=== PATIENT | male | born 1990 | race African-American/Black ===

== ENCOUNTER 2021-01-07 22:34 | Emergency (ER) | payer OTHER ==
[~2021-01-07] VITALS: Ht 165.1 cm; Wt 70.0 kg
[2021-01-07 23:08] LABS: BILIRUBIN,URINE NEGATIVE (NEG); CLARITY,URINE CLEAR; COLOR,URINE YELLOW; NITRITE,URINE NEGATIVE (NEG); PH,URINE 5.5 (<5.0-8.0); PROTEIN,URINE NEGATIVE (NEG-TRACE); UROBILINOGEN,URINE 0.2 mg/dL (0.2 mg/dL)
[2021-01-07 23:15] LABS: BACTERIA,URINE 0 /HPF (0-FEW); RBC,URINE 0 /HPF (0-2); WBC,URINE 20-40 /HPF (0-4)
--- NOTE | 2021-01-07 23:18 | PHYS DOC ---
General Adult EDM: Chief Complaint: TESTICULAR PAIN OR INJURY HPI: HPI: 30-year-old male past medical history of asthma, presents to the ED with complaints of left testicular pain with history of recent urethral discharge that has now resolved. Reports testicular pain radiates up into his abdomen. Reports unprotected intercourse with female partners. History of treatment of chlamydia in the past. No history of HIV or hepatitis. No associated genital lesions. Denies any or blunt trauma. Review of Systems: Review of Systems: Constitutional: Denies fever or chills. [] Eyes: Denies change in visual acuity. [] HENT: Denies nasal congestion or sore throat. [] Respiratory: Denies cough or shortness of breath. [] Cardiovascular: Denies chest pain or edema. [] GI: Denies nausea vomiting, bloody stools or diarrhea : Denies hematuria or flank pain or ulcers/lesions Musculoskeletal: Denies back pain or joint pain. [] Integument: Denies rash or diaphoresis Neurologic: Denies headache, focal weakness or sensory changes. [] Endocrine: Denies polyuria or polydipsia. [] Lymphatic: Denies swollen glands. [] Psychiatric: Denies depression or anxiety. [] Heart Score: C/O Chest Pain: No Risk Factors: Risk Factors: DM, Current or recent (<one month) smoker, HTN, HLP, family history of CAD, obesity. Risk Scores: Score 0 - 3: 2.5% MACE over next 6 weeks - Discharge Home Score 4 - 6: 20.3% MACE over next 6 weeks - Admit for Clinical Observation Score 7 - 10: 72.7% MACE over next 6 weeks - Early Invasive Strategies Allergies: Allergies: Allergies Coded Allergies Type Severity Reaction Last Updated Verified No Known Drug Allergies 01/07/21 No Physical Exam: PE: Constitutional: Well developed, well nourished, no acute distress, non-toxic appearance. HENT: Normocephalic, atraumatic, Eyes: EOMI, conjunctiva normal, no discharge. Neck: Normal range of motion, supple, Cardiovascular: S1/2 present, regular rhythm Lungs & Thorax: Speaking in full sentences, bilateral equal chest rise, no tachypnea or increased work of breathing Abdomen: soft, no tenderness, Skin: Warm, dry, no erythema, no rash. [] Extremities: No tenderness, no cyanosis, Neurologic: Alert and oriented X 3, normal motor function, normal sensory function, no focal deficits noted. [] Psychologic: Affect normal, judgement normal, mood normal. [] : chaperoned by male medic, circumcised, no urethral discharge expressed, very swollen left tender teste/scrotal sac, no perineal rash, no ulcers or lesions EKG: EKG: [] Radiology/Procedures: Radiology/Procedures: []IMAGING REPORT Signed PATIENT: RUTHY ROBLERO AACCOUNT: [id number] : 1990 LOCATION: ER AGE: 30 SEX: M EXAM STATUS: REG ER ORD. PHYSICIAN: ASHELY DE LA CRUZ DO REASON: left testibular pain PROCEDURE: TESTICULAR/SCROTUM CLINICAL HISTORY: Reason: left testibular pain / Spl. Instructions: / History: COMPARISON: None available. TECHNIQUE: Ultrasound images of the scrotum was performed with higgins-scale and color doppler. FINDINGS: The right testis measures 4.4 x 2.4 x 2.0 cm. The left testis measures 3.5 x 2.9 x 2.6 cm. There is no intratesticular abnormality. Testicular vascularity is symmetric and within normal limits. Left epididymis is enlarged with increased vascularity. Moderate-sized left hydrocele. IMPRESSION: Findings concerning for left-sided epididymoorchitis. Electronically signed by: Ivon Espinoza MD (01/07/2021 11:30 PM) MERGED WITH [facility] DICTATED and SIGNED BY: IVON ESPINOZA MD DATE: 01/07/21 [id number] 0 Course & Med Decision Making: Course & Med Decision Making Pertinent Labs and Imaging studies reviewed. (See chart for details) Concern for acute left epididymoorchitis in a young male with history of unprotected intercourse. Ceftin given in emergency department. Will prescribe doxycycline for 10 days. Patient is nontoxic-appearing, hemodynamically stable. Will discharge home with strict ED return precautions were given for difficulties urinating, genital rash, fever or confusion. Encouraged urgent outpatient follow-up with PMD and urology within 1 week. Life-threatening processes were considered but are low suspicion at this time, given history, physical exam and ED workup. Pt was educated on all prescription medications and adverse effects. All patient's questions were answered and pt was stable at time of discharge. Life/limb-threatening differential includes but is not limited to, sepsis/infection (epididymitis/orchitis, sti/pid, cystitis, pyelonephritis, Angela's gangrene or necrotizing fasciitis, abscess), ureterolithiasis, thro mbophlebitis, hemorrhage/DIC, organ prolapse, abdominal aortic aneurysm, mesenteric ischemia, neoplasm, bowel obstruction, testicular torsion or surgical abdomen I have spoken with the patient and/or caregivers. I explained the patient's condition, diagnoses and treatment plan based on the information available to me at this time. I have answered the patient and/or caregiver's questions and addressed any concerns. The patient and/or caregivers have a good understanding of patient's diagnosis, condition and treatment plan as can be expected at this point. Vital signs have been stable. Patient's condition is stable and appropriate for discharge from the emergency department. Patient will pursue further outpatient evaluation with primary care physician or other designated or consulting physician as outlined in the discharge instructions. The patient and/or caregivers are agreeable to this plan of care and follow-up instructions have been explained in detail. The patient and/or caregivers have received these instructions in written form and have expressed an understanding of the discharge instructions. The patient and/or caregivers are aware that any significant change of condition or worsening of symptoms should prompt immediate return to this or the closest emergency department or call to 911. Nazia Disclaimer: Nazia Disclaimer: This electronic medical record was generated, in whole or in part, using a voice recognition dictation system. Departure Departure Impression: Primary Impression: Acute epididymo-orchitis Disposition: HOME / SELF CARE / HOMELESS Condition: STABLE Referrals: JUSTINA CLEMENTS III DO Follow-up with your primary care physician in 24 to 48 hours OR FOLLOW UP WITH FAMILY MEDICINE: [address], [address] [place] [address] Patient Instructions: Epididymitis, Orchitis Additional Instructions: FOLLOW UP WITH UROLOGY: FOR DEFINITIVE MANAGEMENT in 1 week [facility] [place] [address] [place] [address] [place] [address] [address] [place] [address] [facility] [address] [address] [place] [address] EMERGENCY DEPARTMENT GENERAL DISCHARGE INSTRUCTIONS Thank you for coming to [facility] Emergency Department (ED) today and trusting us with you care. We trust that you had a positive experience in our Emergency Department. If you wish to speak to the department management, you may call the Director at [phone]. YOUR FOLLOW UP INSTRUCTIONS ARE FOLLOWS: 1. Do you have a private Doctor? If you do not have a private doctor, please ask for a resource list of physicians or clinics that may be able to assist you with follow up care. 2. The Emergency Physicain has interpreted your x-rays. The X-Ray specialist will also review them. If there is a change in the findings, you will be notified in 48 hours when at all possible. 3. A lab test or culture has been done, your results will be reviewed and you will be notified if you need a change in treatment. ADDITIONAL INSTRUCTIONS AND INFORMATION: 1. Your care today has been supervised by a physician who is specially trained in emergency care. Many problems require more than one evaluation for a complete diagnosis and treatment. We recommend that you schedule your follow up appointment as recommended to ensure complete treatment of you illness or injury. If you are unable to obtain follow up care and continue to have a problem, or if your condition worsens, we recommend that you return to the ED. 2. We are not able to safely determine your condition over the phone nor are we able to give sound medical advice over the phone. For these safety reasons, if you call for medical advice we will ask you to come to the ED for further evaluation. 3. If you have any questions regarding these discharge instructions please call the ED at [phone]. SAFETY INFORMATION: In the interest of safety, wellness, and injury prevention; we encourage you to wear your sealbelt, if you smoke; quite smoking, and we encourage family to use a protective helmet for bicycling and other sporting events that present an increased risk for head injury. IF YOUR SYMPTOMS WORSEN OR NEW SYMPTOMS DEVELOP, OR YOU HAVE CONCERNS ABOUT YOUR CONDITION; OR IF YOUR CONDITION WORSENS WHILE YOU ARE WAITING FOR YOUR FOLLOW UP APPOINTMENT; EITHER CONTACT YOUR PRIMARY CARE DOCTOR, THE PHYSICIAN WHOSE NAME AND NUMBER YOU WERE GIVEN, OR RETURN TO THE ED IMMEDIATELY. Scripts Doxycycline Hyclate (DOXYCYCLINE HYCLATE) 100 Mg Capsule 1 CAP PO BID for 10 Days, #20 CAP Prov: ASHELY DE LA CRUZ DO 01/08/21 ASHELY DE LA CRUZ DO Jan 07, 2021 23:18
--- NOTE | 2021-01-07 23:33 | RAD ---
CLINICAL HISTORY: Reason: left testibular pain / Spl. Instructions: / History: COMPARISON: None available. TECHNIQUE: Ultrasound images of the scrotum was performed with higgins-scale and color doppler. FINDINGS: The right testis measures 4.4 x 2.4 x 2.0 cm. The left testis measures 3.5 x 2.9 x 2.6 cm. There is no intratesticular abnormality. Testicular vascularity is symmetric and within normal limit s. Left epididymis is enlarged with increased vascularity. Moderate-sized left hydrocele. IMPRESSION: Findings concerning for left-sided epididymoorchitis. Electronically signed by: Ivon Israel MD (01/07/2021 11:30 PM) KARIN
[2021-01-08] MEDS ORDERED: cefTRIAXone IM 500 MG VIAL. IM ONE (00:30)
[2021-01-08] MEDS ORDERED: DOXY100C3 PO (01:23)
[2021-01-08 01:29] VITALS: BP 156/78
== END 2021-01-08 01:50 | disposition home or self-care (01) ==
LOC: EEVIPCON 22:34 → ER 22:34
DX: N45.3 Epididymo-orchitis (principal)
CPT/HCPCS: 76870; 81001; 87086; 87491; 87591; 96372; 99285; J0696